=== PATIENT | male | born 1985 ===

== ENCOUNTER → 2020-10-30 | Outpatient (REF) | payer OTHER, SELFPAY ==
[2020-10-30 08:44] LABS: SEMEN APPEARANCE OPAQUE (OPAQUE); SEMEN VISCOSITY LIQUID (LIQUID); SEMEN VOLUME 1.8 ml (2.0-5.0)
[2020-10-30 08:45] LABS: SPERM CONCENTRATION 98.5 M/ml (>=15.0); WBC CONCENTRATION >1 M/ml (<=1 M/ml)
== END ==
LOC: M LAB REF 08:31
PROVIDERS: ATTEND Obstetrics & Gynecology
DX: N46.8 Other male infertility (principal)